=== PATIENT | female | born 1985 | race African-American/Black ===

== ENCOUNTER 2019-04-06 13:36 | Observation (INO) ==
[2019-04-06] MEDS ORDERED: SODIUM CHLORIDE 0.9% 1,000 ML IV STA (14:48)
[2019-04-06 15:50] LABS: Basophils % 0.1 % (0.0-0.8); Eosinophils % 0.2 % (0.00-10.9); Hematocrit 34.3 VOL% (35.7-47.0); Hemoglobin 11.1 GM/DL (12.0-16.0); Immature Granulocytes % 0.7 %; Immature Granulocytes Absolute 0.07 #; Lymphocytes % 9.2 % (21.3-54.2); Mean Corpuscular HGB Conc 32.4 GM/DL (32-36); Mean Corpuscular Volume 99.7 FL (87-102); Mean Platelet Volume 8.9 FL (9.6-12.0); Monocytes % 5.2 % (1.7-12.7); Neutrophils % 84.6 % (38.7-73.9); Platelet Count 198 T/CUMM (130-400); Red Blood Count 3.44 MC/CUMM (3.8-5.5); Red Cell Distribution Width 13.3 % (9.3-17.3); White Blood Count 10.6 T/CUMM (4-12)
[2019-04-06 15:59] LABS: Apearance,Urine CLEAR (Clear); Bacteria,Urine Occasional /HPF (Few); Bilirubin,Urine Negative (Negative); Blood, Urine Negative (Negative); Glucose,Urine (UA) Negative (Negative); Hyaline Casts,Urine 3 /LPF (0-3); Ketones,Urine 5 mg/dL (Negative); Mucus,Urine Occasional /LPF (Occasional); Nitrite,Urine Negative (Negative); Protein,Urine 30 MG/DL; RBC,Urine 2 /HPF (0-4); Squamous Epithelial Cell,Urine Occasional /HPF (0-10); Urine Color Yellow (Yellow); Urine Specific Gravity 1.015 (1.001-1.035); Urine Urobilinogen < 2.0 EU/DL (0.2-1.0); WBC,Urine 2 /HPF (0-6)
[2019-04-06 16:03] LABS: Alanine Aminotransferase 13 U/L (13-56); Albumin 3.6 G/DL (3.4-5.0); Alkaline Phosphatase 76 U/L (45-117); Aspartate Amino Transferase 11 U/L (0-37); Blood Urea Nitrogen 12 MG/DL (7-18); Estimated Glom Filtration Rate 39 ML/MIN; Glucose 111 MG/DL (74-106); Osmolality,Calculated 273.8 MOS/KG (273-304); PT Patient Result 10.7 SECS (9.6-12.2); Partial Thromboplastin Time 24.3 SECS (20.8-36.0); Total Protein 7.3 G/DL (6.4-8.3); Troponin I < 0.015 NG/ML (0.00-0.045)
[2019-04-06] MEDS ORDERED: ACETAMINOPHEN 325 MG TABLET PO PRN (18:43)
[2019-04-06] MEDS ORDERED: ONDANSETRON 4 MG/2 ML VIAL IV PRN (18:43)
[2019-04-06] MEDS: ALBUTEROL/IPRATROPIUM 3 ML NEB RESP TX SCH (19:59)
[2019-04-06] MEDS: SODIUM CHLOR 0.9% KCL 20 MEQ 20 MEQ/1,000 ML BAG IV SCH (20:53)
[2019-04-06] MEDS: MYCOPHENOLATE MOFETIL 250 MG CAPSULE PO SCH (20:54)
[2019-04-06] MEDS: carvediloL 3.125 MG TABLET PO SCH (20:55)
[2019-04-06] MEDS: cefTRIAXone 1,000 MG in SYRINGE 1 EACH IV SCH (20:55)
[2019-04-06] MEDS ORDERED: amLODIPine 5 MG TABLET PO SCH (21:00)
[2019-04-06] MEDS ORDERED: AZITHROMYCIN INJ 500 MG in SODIUM CHLORIDE 0.9% 250 ML IV SCH (21:00)
[2019-04-06] MEDS: cycloSPORINE 25 MG CAPSULE PO SCH (22:01)
[2019-04-07] MEDS: ALBUTEROL/IPRATROPIUM 3 ML NEB RESP TX SCH ×3 (02:11→13:36)
[2019-04-07] MEDS: SODIUM CHLOR 0.9% KCL 20 MEQ 20 MEQ/1,000 ML BAG IV SCH ×2 (03:08→11:14)
[2019-04-07 04:41] LABS: Basophils % 0.1 % (0.0-0.8); Eosinophils % 0.3 % (0.00-10.9); Hematocrit 27.6 VOL% (35.7-47.0); Hemoglobin 8.6 GM/DL (12.0-16.0); Immature Granulocytes % 0.6 %; Immature Granulocytes Absolute 0.04 #; Lymphocytes # 1.5 10*3/uL (1.4-4.0); Lymphocytes % 21.4 % (21.3-54.2); Mean Corpuscular HGB Conc 31.2 GM/DL (32-36); Mean Corpuscular Volume 101.5 FL (87-102); Mean Platelet Volume 9.2 FL (9.6-12.0); Monocytes % 11.6 % (1.7-12.7); Platelet Count 162 T/CUMM (130-400); Red Blood Count 2.72 MC/CUMM (3.8-5.5); Red Cell Distribution Width 13.3 % (9.3-17.3)
[2019-04-07 05:27] LABS: Calcium 8.4 MG/DL (8.5-10.1); Osmolality,Calculated 280.1 MOS/KG (273-304); Risk Ratio 3.34; Thyroid Stimulating Hormone 1.02 uIU/ml (0.358-3.74); VLDL CHOLESTEROL 17.8 MG/DL
[2019-04-07] MEDS ORDERED: BICILLIN LA 1,200,000 UNIT/2 ML SYRINGE IM STA (07:53)
[2019-04-07] MEDS ORDERED: PANTOPRAZOLE 20 MG TABLET PO SCH (09:00)
[2019-04-07] MEDS ORDERED: CALCIUM (CITRATE)/VITAMIN D 200 MG-125 UNIT TABLET PO SCH (09:00)
[2019-04-07] MEDS ORDERED: LOSARTAN 25 MG TABLET PO SCH (09:00)
[2019-04-07] MEDS ORDERED: FOLIC ACID 1 MG TABLET PO SCH (09:00)
[2019-04-07] MEDS ORDERED: CYANOCOBALAMIN 500 MCG TABLET PO SCH (09:00)
[2019-04-07] MEDS ORDERED: predniSONE 5 MG TABLET PO SCH (09:00)
[2019-04-07] MEDS: MYCOPHENOLATE MOFETIL 250 MG CAPSULE PO SCH (09:02)
[2019-04-07] MEDS: carvediloL 3.125 MG TABLET PO SCH (09:02)
[2019-04-07] MEDS: cycloSPORINE 25 MG CAPSULE PO SCH (09:04)
[2019-04-07] MEDS ORDERED: AZITHROMYCIN 250 MG TABLET PO SCH (09:30)
[2019-04-07] MEDS: cefTRIAXone 1,000 MG in SYRINGE 1 EACH IV SCH (10:30)
[2019-04-07 15:52] VITALS: BP 121/91
[2019-04-08] MEDS ORDERED: AZITHROMYCIN 250 MG TABLET PO SCH (21:00)
== END 2019-04-07 15:52 | disposition home or self-care (01) ==
LOC: N.5E 13:36 → N.ED 13:36 → SUATTDRO 19:36 → N.5E 19:52
PROVIDERS: ADMIT Phlebology; ATTEND Family Medicine